=== PATIENT | female | born 1955 | race Caucasian/White ===

== ENCOUNTER 2016-12-16 19:49 | Emergency (ER) | payer MEDICARE, OTHER ==
[~2016-12-16] VITALS: Ht 167.6 cm; Wt 75.0 kg
[2016-12-16 19:51] VITALS: BP 182/93; PULSE 110; RESP 18; TEMP 99.3; O2SAT 97
--- NOTE | 2016-12-16 20:07 | PD ---
HPI Chief Complaint: Musculoskeletal Complaint Time Seen by Provider: 20:03 Travel History International Travel<30 days: No Contact w/Intl Traveler<30days: No Traveled to known affect area: No History of Present Illness HPI 61-year-old white female presents emergency Department with complaints of left knee pain. She states that she had injured her left knee playing [employer] in the swimming pool on Wednesday. She states that she felt something pop. Since then she's had pain and decreased ability to walk. She denies any prior injury. She states the pain is moderate to severe. Worse with attempting to bend and weight-bear. No alleviating factors. Taking ibuprofen. PFSH Past Medical History Narrative Medical MS, fibromyalgia, ectopic , traumatic pancreas injury, pancreatitis Diminished Hearing: No Tetanus Vaccination: Unknown Influenza Vaccination: No Past Surgical History Narrative Surgical Exploratory laparotomy for ectopic , exploratory laparotomy due to traumatic pancreas injury Social History Alcohol Use: Yes Tobacco Use: Yes Substance Use: No Allergies-Medications (Allergen,Severity, Reaction): Coded Allergies: Iodine (Unverified Allergy, Mild, 12/16/16) Sulfa (Unverified Allergy, Mild, 12/16/16) Reported Meds & Prescriptions Reported Meds & Active Scripts Active No Active Prescriptions or Reported Medications Review of Systems Except as stated in HPI: all other systems reviewed are Neg Musculoskeletal: Positive: Arthralgias, Limited ROM, Cramping, Edema, Pain, No : Myalgias, Weakness Physical Exam Narrative GENERAL: This is a well-nourished, well-developed patient, in no apparent distress. SKIN: No rashes, ecchymoses or lesions. Warm and dry. HEAD: Atraumatic. Normocephalic. EYES: PERRL, EOMI, no discharge or injection. No scleral icterus. EARS: Clear NOSE: Nasal turbinates appear normal. THROAT: Mucosa pink and moist. Airway patent. NECK: Trachea midline. supple, moves head freely. LUNGS: Clear to auscultation. CV: Regular in rhythm. ABDOMEN: Soft nontender. EXT: No clubbing cyanosis. Examination the left lower extremity reveals mild swelling of the knee. She has full extension but has limited flexion. Unable to truly assess ligaments due to patient's complaints and pain. No pain in the hip, ankle or foot. She has intact sensation with good pulses. The skin is intact. Data Data Last Documented VS Vital Signs Date Time Temp Pulse Resp B/P Pulse Ox O2 Delivery O2 Flow Rate FiO2 12/16/16 19:56 16 12/16/16 19:51 99.3 110 182/93 97 Room Air Orders Knee, Complete (4vws) (12/16/16 20:02) Ice/Cold Pack (12/16/16 20:02) Splint Or Brace Apply/Monitor (12/16/16 21:04) Crutches (12/16/16 21:04) Acetamin-Hydrocod 325-5 Mg ([place] 5-325 (12/16/16 21:15) MDM Medical Decision Making Medical Screen Exam Complete: Yes Emergency Medical Condition: Yes Medical Record Reviewed: Yes Interpretation(s) Left knee: Positive degenerative changes but no fracture Differential Diagnosis MDM: High Differential diagnoses: Fracture, sprain, strain, dislocation, contusion, neurovascular injury Narrative Course Patient's x-ray of the left knee is negative for trauma. She is given the immobilizer and crutches. This is left knee sprain Diagnosis Primary Impression: Left knee sprain Patient Instructions: General Instructions Departure Forms: Tests/Procedures, Work Release Special Instructions: No work 3 days. Additional Instructions: Rest. Elevation. Ice packs for the next 3 days. Knee immobilizer and crutches. No weight-bearing and then progress to weight-bearing as tolerated. Medications as directed Follow-up with an orthopedist or your doctor in one week. Return to the ER if any problems Med/Other Pt SpecificInfo: Prescription(s) given Scripts Diclofenac Sodium DR 75 Mg Tabdr75 Mg PO BID #20 TAB Prov:Mirtha Perez 12/16/16 Disposition: 01 DISCHARGE HOME Condition: Stable Kevin Greene December 16, 2016 20:06
[2016-12-16] MEDS ORDERED: DICL75TA PO (21:05)
--- NOTE | 2016-12-16 21:06 | RADRPT ---
EXAM DATE/TIME: 12/16/2016 20:45 [facility] COMPARISON: No previous studies available for comparison. INDICATIONS : Left knee pain after falling 3 days ago. MEDICAL HISTORY : None. SURGICAL HISTORY : None. ENCOUNTER: Initial ACUITY: 3 days PAIN SCORE: 6/10 LOCATION: Left knee. FINDINGS: Four view examination of the left knee demonstrates no evidence of fracture or dislocation. Bony min eralization is normal. The articular surfaces are intact. The suprapatellar soft tissues have a nor mal configuration. CONCLUSION: Unremarkable examination of the left knee. Omi Wooten Jr., MD on December 16, 2016 at 21:03 Board Certified Radiologist. This report was verified electronically.
[2016-12-16] MEDS ORDERED: ACETAMINOPHEN/HYDROcodone 325 MG/5 MG TAB PO ONE (21:15)
== END 2016-12-16 22:00 | disposition home or self-care (01) ==
LOC: NEPK 19:49
DX: S83.92XA Sprain of unspecified site of left knee, initial encounter (principal); M79.7 Fibromyalgia; G35 Multiple sclerosis; Z72.0 Tobacco use; X58.XXXA Exposure to other specified factors, initial encounter; Y93.89 Activity, other specified; Y92.34 Swimming pool (public) as the place of occurrence of the external cause; Y99.8 Other external cause status
CPT/HCPCS: 73564; 99283; E0113; L1830